=== PATIENT | female | born 1995 | race Two or more races ===

== ENCOUNTER 2020-01-12 08:58 | Emergency (ER) | payer BC, MEDICAID ==
[~2020-01-12] VITALS: Ht 167.6 cm; Wt 109.0 kg
[2020-01-12] MEDS ORDERED: SODIUM CHLORIDE 0.9% 1,000 ML IV ONE (09:04)
[2020-01-12] MEDS ORDERED: KETOROLAC 30MG/ML VIAL IV STA (09:04)
[2020-01-12] MEDS ORDERED: DIAZEPAM 5 MG TABLET PO ONE (09:15)
[2020-01-12 12:24] VITALS: BP 113/59
== END 2020-01-12 12:32 | disposition home or self-care (01) ==
LOC: ER 09:14
DX: M54.5 Low back pain (principal); V43.32XA Unspecified car occupant injured in collision with other type car in nontraffic accident, initial encounter; Z98.890 Other specified postprocedural states; Y93.89 Activity, other specified; Y92.89 Other specified places as the place of occurrence of the external cause; Y99.8 Other external cause status
CPT/HCPCS: 72100; 81025; 96374; 99283; J1885; J7030